=== PATIENT | female | born 1960 | race Caucasian/White ===

== ENCOUNTER 2016-11-01 13:43 | Inpatient (IN) | payer OTHER ==
[2016-11-01 14:57] VITALS: BMI 21.9
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
[2016-11-01] MEDS ORDERED: MAGNESIUM CITRATE 300 ML BOTTLE PO PRN (15:26)
[2016-11-01] MEDS ORDERED: IBUPROFEN 400 MG TABLET (FP) PO PRN (15:26)
[2016-11-01] MEDS ORDERED: guaiFENesin/D-METHORPHAN HB 10 ML UNIT-DOSE CUPS PO PRN (15:26)
[2016-11-01] MEDS ORDERED: METHADONE HCL 10 MG TABLET (FOR DETOX USE ONLY) PO ONE ×2 (15:26→23:00)
[2016-11-01] MEDS ORDERED: NICOTINE POLACRILEX 2 MG GUM BC PRN (15:26)
[2016-11-01] MEDS ORDERED: LOPERAMIDE HCL 2 MG CAPSULE PO PRN (15:26)
[2016-11-01] MEDS ORDERED: P-EPHED 60MG/TRIPROLIDI 2.5MG TABLET PO PRN (15:26)
[2016-11-01] MEDS ORDERED: ACETAMINOPHEN 325 MG TABLET (FP) PO PRN (15:26)
[2016-11-01] MEDS ORDERED: diazePAM 5 MG TABLET PO PRN (15:26)
[2016-11-01] MEDS ORDERED: MAGNESIUM HYDROX 2400MG/30ML ORAL SUSPENSION 30 ML CUP PO PRN (15:26)
[2016-11-01] MEDS ORDERED: diazePAM 5 MG TABLET PO ONE (15:26)
[2016-11-01] MEDS ORDERED: MAG HYDROX/AL HYDROX/SIMETH 30 ML UNIT-DOSE CUP PO PRN (15:26)
[2016-11-01] MEDS ORDERED: hydrOXYzine PAMOATE 50 MG CAPSULE (FP) PO PRN ×2 (15:26)
[2016-11-01] MEDS ORDERED: MENTHOL/PHENOL 1 EACH UD MM PRN (15:26)
[2016-11-01] MEDS ORDERED: ALBUTEROL SO4 6.7 GM HFA INHALER IH PRN (15:30)
[2016-11-01] MEDS ORDERED: ALBUTEROL SO4 2.5/IPRATROPIUM 0.5 INH SOL 3 ML VIAL.NEB. NEB PRN (15:33)
[2016-11-01] MEDS: NICOTINE 21 MG/24 HOURS TOPICAL PATCH TD SCH (16:47)
[2016-11-01] MEDS: ALBUTEROL SO4 2.5/IPRATROPIUM 0.5 INH SOL 3 ML VIAL.NEB. NEB SCH (18:20)
[2016-11-01 20:52] LABS: URINE APPEARANCE CLEAR; URINE BILIRUBIN NEGATIVE (NEGATIVE); URINE BLOOD NEGATIVE (NEGATIVE); URINE COLOR AMBER; URINE GLUCOSE (UA) NEGATIVE (NEGATIVE); URINE KETONE NEGATIVE (NEGATIVE); URINE NITRITE NEGATIVE (NEGATIVE); URINE PROTEIN NEGATIVE (NEGATIVE); URINE UROBILINOGEN 2.0 E.U/dl E.U./dl (0.2-1.0)
[2016-11-01 21:18] LABS: URINE LEUK ESTERASE 1+ (NEGATIVE)
[2016-11-01 21:20] LABS: URINE HYALINE CAST 1 /lpf; URINE MUCUS RARE; URINE RBC 26 /hpf (0-3); URINE WBC 36 /hpf (3-5)
[2016-11-01] MEDS: THIAMINE HCL 100 MG TABLET (FP) PO SCH (22:50)
[2016-11-01] MEDS: MONTELUKAST NA 10 MG TABLET PO SCH (22:50)
[2016-11-01] MEDS: diazePAM 5 MG TABLET PO SCH (22:50)
[2016-11-01] MEDS: BUDESONIDE/FORMETEROL FUMARATE 80/4.5 mcg INHALER IH SCH (22:50)
[2016-11-02] MEDS: ALBUTEROL SO4 2.5/IPRATROPIUM 0.5 INH SOL 3 ML VIAL.NEB. NEB SCH ×5 (02:47→22:20)
[2016-11-02] MEDS: diazePAM 5 MG TABLET PO SCH ×3 (06:25→22:21)
[2016-11-02] MEDS ORDERED: METHADONE HCL 10 MG TABLET (FOR DETOX USE ONLY) PO SCH (10:00)
[2016-11-02] MEDS: BUDESONIDE/FORMETEROL FUMARATE 80/4.5 mcg INHALER IH SCH ×2 (10:10→22:21)
[2016-11-02] MEDS: PRENATAL VITAMINS W/ FOLIC ACID TABLET (FP) PO SCH (10:10)
[2016-11-02] MEDS: amLODIPine BESYLATE 5 MG TABLET (FP) PO SCH (10:10)
[2016-11-02] MEDS: NICOTINE 21 MG/24 HOURS TOPICAL PATCH TD SCH (10:11)
[2016-11-02 10:50] LABS: MCH 30.9 pg (25.7-33.7); MCHC 33.6 g/dl (32.0-36.0); MEAN CELL VOLUME 91.7 fl (80-96); MEAN PLT VOLUME 7.9 fl (7.5-11.1); PLATELET COUNT 219 K/MM3 (134-434); RDW 13.9 % (11.6-15.6); WHITE BLOOD COUNT 7.2 K/mm3 (4.0-10.0)
[2016-11-02 10:57] LABS: ALBUMIN 3.5 g/dl (3.4-5.0); ALK PHOS 74 U/L (45-117); ANION GAP 6 (8-16); BILIRUBIN,TOTAL 0.7 mg/dL (0.2-1.0); CALCIUM 9.1 mg/dL (8.5-10.1); CO2 29 mmol/L (21-32); COCKROFT - GAULT 65.9685; CREATININE 0.9 mg/dL (0.55-1.02); GLUCOSE,RANDOM 87 mg/dL (74-106); SGOT/AST 24 U/L (15-37); SGPT/ALT 23 U/L (12-78); TOT PROT 6.8 g/dl (6.4-8.2)
--- NOTE | 2016-11-02 12:33 | PN ---
[facility] CIWA - CIWA Score Nausea/Vomitin-Mild Nausea/No Vomiting Muscle Tremors: 3 Anxiety: 4-Mod. Anxious/Guarded Agitation: 4-Moderately Restless Paroxysmal Sweats: 3 Orientation: 0-Oriented Tacttile Disturbances: 0-None Auditory Disturbances: 0-None Visual Disturbances: 0-None Headache: 0-None Present CIWA-Ar Total Score: 15 BHS COWS - Scale Resting Pulse: 1= [place] 81-100 Sweatin=Flushed/Facial Moisture Restless Observation: 1= Difficult to Sit Still Pupil Size: 0= Normal to Room Light Bone or Joint Aches: 2= Severe Diffuse Aches Runny Nose/ Eye Tearin= Runny Nose/Eyes GI Upset > 30mins: 2= Nausea/Diarrhea Tremor Observation of Outstretched Hands: 2= Slight Tremor Visible Yawning Observation: 1= 1-2x During Session Anxiety or Irritability: 2=Irritable/Anxious Goose Flesh Skin: 0=Smooth Skin COWS Score: 15 [facility] Progress Note (SOAP) Subjective: Anxiety,tremors,sweating,interrupted sleep,restless Objective: 11/02/16 12:32 Last Vital Signs Temp Pulse Resp BP Pulse Ox 97 F L 82 20 141/93 11/02/16 09:57 11/02/16 09:57 11/02/16 09:57 11/02/16 09:57 Laboratory Tests 11/01/16 11/02/16 11/02/16 16:30 07:45 07:45 WBC 7.2 RBC 4.33 Hgb 13.4 Hct 39.7 MCV 91.7 MCHC 33.6 RDW 13.9 Plt Count 219 D MPV 7.9 Sodium 141 Potassium 4.4 Chloride 106 Carbon Dioxide 29 Anion Gap 6 L BUN 14 Creatinine 0.9 Creat Clearance w eGFR > 60 Random Glucose 87 D Calcium 9.1 Total Bilirubin 0.7 D AST 24 D ALT 23 D Alkaline Phosphatase 74 D Total Protein 6.8 Albumin 3.5 Urine Color [place] Urine Appearance Clear Urine pH 5.0 D Ur Specific [place] 1.025 Urine Protein Negative Urine Glucose (UA) Negative Urine Ketones Negative Urine Blood Negative Urine Nitrite Negative Urine Bilirubin Negative Urine Urobilinogen 2.0 e.u/dl H Ur Leukocyte Esterase 1+ H Urine RBC 26 Urine WBC 36 Ur Epithelial Cells Moderate Hyaline Casts 1 Urine Mucus Rare labs noted Assessment: 11/02/16 12:32 Withdrawal sx. Plan: Continue detox
--- NOTE | 2016-11-02 16:36 | EKG ---
Test Reason : Blood Pressure : / mmHG Vent. Rate : 062 BPM Atrial Rate : 062 BPM P-R Int : 130 ms QRS Dur : 078 ms QT Int : 416 ms P-R-T Axes : 067 072 075 degrees QTc Int : 422 ms NORMAL SINUS RHYTHM NORMAL ECG NO PREVIOUS ECGS AVAILABLE Confirmed by TRACIE ORTA MD ([id number]) on 11/02/2016 4:36:37 PM Referred By: Confirmed By:TRACIE ORTA MD
[2016-11-02 21:57] VITALS: TEMP 98.2
[2016-11-02] MEDS: THIAMINE HCL 100 MG TABLET (FP) PO SCH (22:21)
[2016-11-02] MEDS: MONTELUKAST NA 10 MG TABLET PO SCH (22:21)
--- NOTE | 2016-11-03 09:17 | CONSULT ---
[facility] Psychiatric Consult - Data Date of interview: 11/03/16 Admission source: [facility] Identifying data: This is 56 years old female ambulating with cane, with psychiatric hospitalization history, history of MDD, intoxicated with: Opioids , Xanax, Substance Abuse History: - Smoking Cessation. Smoking history: Current every day smoker. Have you smoked in the past 12 months: Yes. Aproximately how many cigarettes per day: 10. Cigars Per Day: 0. Hx Chewing Tobacco Use: No. Initiated information on smoking cessation: Yes. 'Breaking Loose' booklet given : 11/01/16. - Substance & Tx. History. Hx Alcohol Use: No. Hx Substance Use: Yes. Substance Use Type: Heroin, Tranquilizers. Hx Substance Use Treatment: Yes (Detox). - Substances Abused. Heroin. Route: Injection. Frequency: Daily. Amount used: 10 bags. Age of first use: 36. Date of Last Use: . Alprazolam (Xanax). Route: Oral. Frequency: Daily. Amount used: 8mg. Age of first use: 47. Date of Last Use: 11/01/16 Medical History: HTN, GERD, COPD, Ambulates with Cane Psychiatric History: Patiebt reprots history 0of MDD, with most recent psychiatric admission on 2007 at [facility] for safety, reports currently taking: Ambien 10mg po qhs. Trazodone 300mg po mqhs Physical/Sexual Abuse/Trauma History: Denies Additional Comment: Ambien 10mg po qhs. Trazodone 300mg po mqhs Mental Status Exam - Mental Status Exam Alert and Oriented to: Person Cognitive Function: Fair Patient Appearance: Unkempt Mood: Sad Affect: Flat Patient Behavior: Sedated Speech Pattern: Delayed Voice Loudness: Mildly Soft/Quiet Thought Process: Circumstantial, Goal Oriented Thought Disorder: Being Controlled Hallucinations: Denies Suicidal Ideation: Denies Homicidal Ideation: Denies Insight/Judgement: Fair Sleep: Difficulty falling asleep Appetite: Weight loss Muscle strength/Tone: Clonus Gait/Station: Deferred Additional Comments: Ambien 10mg po qhs. Trazodone 300mg po mqhs Psychiatric Findings - Problem List ([place] 1, 2,3) (1) Opioid dependence with withdrawal Current Visit: Yes Status: Acute (2) Sedative, hypnotic or anxiolytic dependence with withdrawal, uncomplicated Current Visit: Yes Status: Acute (3) Essential hypertension Current Visit: Yes Status: Chronic (4) Gastroesophageal reflux disease Current Visit: Yes Status: Chronic (5) Nicotine dependence Current Visit: Yes Status: Chronic Qualifiers: Nicotine product type: cigarettes Substance use status: uncomplicated Qualified Code(s): F17.210 - Nicotine dependence, cigarettes, uncomplicated (6) Drug-induced mood disorder Current Visit: No Status: Acute (7) Opioid dependence Current Visit: No Status: Chronic - Initial Treatment Plan Initial Treatment Plan: Ambien 10mg po qhs. Trazodone 300mg po mqhs
[2016-11-03] MEDS ORDERED: TRIMETHOBENZAMIDE HCL 300 MG CAPSULE PO PRN (09:45)
--- NOTE | 2016-11-03 09:45 | PN ---
[facility] CIWA - CIWA Score Nausea/Vomitin-No Nausea/No Vomiting Muscle Tremors: 4-Moderate,w/Arms Extend Anxiety: 4-Mod. Anxious/Guarded Agitation: 3 Paroxysmal Sweats: 3 Orientation: 0-Oriented Tacttile Disturbances: 0-None Auditory Disturbances: 0-None Visual Disturbances: 0-None Headache: 0-None Present CIWA-Ar Total Score: 14 S COWS - Scale Resting Pulse: 1= [place] 81-100 Sweatin=Flushed/Facial Moisture Restless Observation: 1= Difficult to Sit Still Pupil Size: 0= Normal to Room Light Bone or Joint Aches: 2= Severe Diffuse Aches Runny Nose/ Eye Tearin= Runny Nose/Eyes GI Upset > 30mins: 2= Nausea/Diarrhea Tremor Observation of Outstretched Hands: 2= Slight Tremor Visible Yawning Observation: 2= >3x During Session Anxiety or Irritability: 2=Irritable/Anxious Goose Flesh Skin: 0=Smooth Skin COWS Score: 16 [facility] Progress Note (SOAP) Subjective: nausea sweats shakes chronic body aches/pain interrupted sleep Objective: 11/03/16 09:44 Vital Signs Temperature 98.2 F 11/03/16 06:44 Pulse Rate 62 11/03/16 06:44 Respiratory Rate 16 11/03/16 06:44 Blood Pressure 139/79 11/03/16 06:44 O2 Sat by Pulse Oximetry (%) Laboratory Tests 11/01/16 11/02/16 11/02/16 16:30 07:45 07:45 WBC 7.2 RBC 4.33 Hgb 13.4 Hct 39.7 MCV 91.7 MCHC 33.6 RDW 13.9 Plt Count 219 D MPV 7.9 Sodium 141 Potassium 4.4 Chloride 106 Carbon Dioxide 29 Anion Gap 6 L BUN 14 Creatinine 0.9 Creat Clearance w eGFR > 60 Random Glucose 87 D Calcium 9.1 Total Bilirubin 0.7 D AST 24 D ALT 23 D Alkaline Phosphatase 74 D Total Protein 6.8 Albumin 3.5 Urine Color Linda Urine Appearance Clear Urine pH 5.0 D Ur Specific [place] 1.025 Urine Protein Negative Urine Glucose (UA) Negative Urine Ketones Negative Urine Blood Negative Urine Nitrite Negative Urine Bilirubin Negative Urine Urobilinogen 2.0 e.u/dl H Ur Leukocyte Esterase 1+ H Urine RBC 26 Urine WBC 36 Ur Epithelial Cells Moderate Hyaline Casts 1 Urine Mucus Rare RPR Titer 11/02/16 07:45 WBC RBC Hgb Hct MCV MCHC RDW Plt Count MPV Sodium Potassium Chloride Carbon Dioxide Anion Gap BUN Creatinine Creat Clearance w eGFR Random Glucose Calcium Total Bilirubin AST ALT Alkaline Phosphatase Total Protein Albumin Urine Color Urine Appearance Urine pH Ur Specific [place] Urine Protein Urine Glucose (UA) Urine Ketones Urine Blood Urine Nitrite Urine Bilirubin Urine Urobilinogen Ur Leukocyte Esterase Urine RBC Urine WBC Ur Epithelial Cells Hyaline Casts Urine Mucus RPR Titer Nonreactive awake/alert ambulating with cane safely no acute distress repeat u/a Assessment: 11/03/16 09:44 withdrawal sx Plan: continue detox increase fluids tigan po prn naproxen bid
[2016-11-03] MEDS ORDERED: diazePAM 5 MG TABLET PO SCH (10:00)
[2016-11-03] MEDS ORDERED: NAPROXEN 500 MG TABLET (FP) PO SCH (10:00)
[2016-11-03] MEDS ORDERED: METHADONE HCL 5 MG TABLET (FOR DETOX USE ONLY) PO SCH (10:00)
[2016-11-03 10:32] VITALS: BP 128/83; PULSE 83
[2016-11-03] MEDS: PRENATAL VITAMINS W/ FOLIC ACID TABLET (FP) PO SCH (10:34)
[2016-11-03] MEDS: BUDESONIDE/FORMETEROL FUMARATE 80/4.5 mcg INHALER IH SCH (10:34)
[2016-11-03] MEDS: NICOTINE 21 MG/24 HOURS TOPICAL PATCH TD SCH (10:35)
[2016-11-03] MEDS: amLODIPine BESYLATE 5 MG TABLET (FP) PO SCH (10:35)
[2016-11-03] MEDS ORDERED: ZOLPIDEM TARTRATE 10 MG TABLET (PARK CARE ONLY) PO PRN (22:00)
[2016-11-03] MEDS ORDERED: traZODone HCL 100 MG TABLET (FP) PO SCH (22:00)
--- NOTE | 2016-11-04 15:53 | DS ---
[facility] Detox Discharge Summary Admission Date: 11/01/16 Discharge Date: 11/03/16 - History Present History: Opioid Dependence, Sedative Dependence - Physical Exam Results Vital Signs: Vital Signs Temperature 98.2 F 11/03/16 10:00 Pulse Rate 83 11/03/16 10:00 Respiratory Rate 18 11/03/16 10:00 Blood Pressure 128/83 11/03/16 10:00 O2 Sat by Pulse Oximetry (%) - Medication Discharge Medications: Ambulatory Orders Clonidine HCl 0.3 mg PO BID 09/12/13 Esomeprazole Mag Trihydrate [Nexium] 40 mg PO DAILY 09/12/13 Budesonide/Formeterol Fumarate [SYMBICORT 80/4.5mcg -] 1 inh PO BID 01/16/14 Albuterol Sulfate Inhaler - [Ventolin HFA Inhaler -] 2 inh PO Q4H PRN #1 inh Montelukast Na [Singulair -] 10 mg PO HS #30 tablet 01/20/14 Cyclobenzaprine HCl [Flexeril -] 10 mg PO TID 10/24/14 Oxycodone HCl [Oxycodone HCl ER] 30 mg PO Q6H 10/24/14 Trazodone HCl [Desyrel -] 300 mg PO HS #30 tablet 10/24/14 Zolpidem Tartrate [Ambien] 10 mg PO HS #30 tablet 10/24/14 Trazodone HCl [Desyrel -] 300 mg PO HS #30 tablet 11/03/16 Zolpidem Tartrate [Ambien] 10 mg PO HS PRN #14 tablet MDD 10 11/03/16 - Diagnosis (1) Drug-induced mood disorder Status: Chronic (2) Opioid dependence with withdrawal Status: Chronic (3) Sedative, hypnotic or anxiolytic dependence with withdrawal, uncomplicated Status: Chronic (4) COPD (chronic obstructive pulmonary disease) Status: Chronic Qualifiers: Chronic bronchitis type: unspecified (5) Essential hypertension Status: Chronic (6) Gastroesophageal reflux disease Status: Chronic Qualifiers: Esophagitis presence: without esophagitis Qualified Code(s): K21.9 - Gastro-esophageal reflux disease without esophagitis (7) Nicotine dependence Status: Chronic Qualifiers: Nicotine product type: cigarettes Substance use status: uncomplicated Qualified Code(s): F17.210 - Nicotine dependence, cigarettes, uncomplicated (8) Opioid dependence Status: Chronic Qualifiers: Substance use status: uncomplicated Qualified Code(s): F11.20 - Opioid dependence, uncomplicated - AMA Did Patient Leave Against Medical Advice: Yes
[2016-11-05] MEDS ORDERED: diazePAM 5 MG TABLET PO SCH (10:00)
[2016-11-05] MEDS ORDERED: METHADONE HCL 10 MG TABLET (FOR DETOX USE ONLY) PO SCH (10:00)
[2016-11-06] MEDS ORDERED: METHADONE HCL 5 MG TABLET (FOR DETOX USE ONLY) PO SCH (06:00)
== END 2016-11-03 11:45 | disposition left against medical advice (07) | DRG 770 ==
LOC: YASAS 13:43 → Y6N 14:58
PROVIDERS: ADMIT Internal Medicine; ATTEND Internal Medicine
PROC: HZ2ZZZZ Detoxification Services for Substance Abuse Treatment (ICD-10-PCS; principal; 2016-11-03)
DX: F11.23 Opioid dependence with withdrawal (principal); F13.230 Sedative, hypnotic or anxiolytic dependence with withdrawal, uncomplicated; F17.210 Nicotine dependence, cigarettes, uncomplicated; F19.24 Other psychoactive substance dependence with psychoactive substance-induced mood disorder; F32.9 Major depressive disorder, single episode, unspecified; J45.909 Unspecified asthma, uncomplicated; G40.909 Epilepsy, unspecified, not intractable, without status epilepticus; K21.9 Gastro-esophageal reflux disease without esophagitis
CPT/HCPCS: 36415; 80053; 81003; 81015; 85027; 86593; 93005; 93010; 94640